=== PATIENT | female | born 1975 | race Caucasian/White ===

== ENCOUNTER 2018-05-08 13:38 | Emergency (ER) | payer OTHER ==
[~2018-05-08] VITALS: Ht 170.2 cm; Wt 67.0 kg
[2018-05-08 13:41] VITALS: BP 122/85; PULSE 108; TEMP 97.8
[2018-05-08] MEDS ORDERED: ZOFRAN ODT4 MG PO (14:41)
== END 2018-05-08 15:38 | disposition home or self-care (01) ==
LOC: COL.ER 13:38
DX: F10.10 Alcohol abuse, uncomplicated (principal); E86.0 Dehydration; R11.2 Nausea with vomiting, unspecified
CPT/HCPCS: J1885; J2405; J7030